=== PATIENT | female | born 1985 | race African-American/Black ===

== ENCOUNTER → 2017-11-29 | Outpatient (CLI) | payer MEDICAID ==
[~2017-11-29] MED LIST: PYRI200T4 PO; SULF1TAB47 PO; Z.0.NO CURRENT MEDS
== END ==
LOC: HPND 08:27
PROVIDERS: ATTEND Obstetrics & Gynecology
DX: Z36.3 Encounter for antenatal screening for malformations (principal)
CPT/HCPCS: 76811